=== PATIENT | male | born 1960 | race African-American/Black ===

== ENCOUNTER 2021-10-18 13:00 | Inpatient (IN) | payer MEDICAID, OTHER ==
[~2021-10-18] VITALS: Ht 185.4 cm; Wt 84.8 kg
[2021-10-18 11:00] VITALS: BP 168/102
[2021-10-18] MEDS ORDERED: HYDROCODONE/ACETAMINOPHEN 5/325MG TABLET PO STA (14:51)
[2021-10-18] MEDS ORDERED: PIPERACILLIN/TAZOBACTAM 3.375GM/50ML PREMIX IV STA (14:51)
[2021-10-18] MEDS ORDERED: PIPERACILLIN/TAZOBACTAM 3.375GM/50ML PREMIX IV NR (15:00)
[2021-10-18] MEDS ORDERED: SODIUM CHLORIDE 0.9% 1,000 ML IV ONE (15:00)
[2021-10-18] MEDS: VANCOMYCIN 1GM PMX (XELLIA) 200 ML IV STA ×2 (15:13→16:34)
[2021-10-18 15:40] LABS: BASOPHILS % 0.6 % (0.0-2.0); EOSINOPHILS % 1.4 % (0.0-5.0); HEMATOCRIT. 38.6 % (42.0-52.0); HEMOGLOBIN. 13.1 g/dL (14.0-18.0); LYMPHOCYTES % 27.7 % (20.0-50.0); MEAN CORPUSCULAR HEMOGLOBIN 35.3 pg (28.0-32.0); MEAN CORPUSCULAR VOLUME 103.7 fL (80.0-94.0); MEAN PLATELET VOLUME 8.3 fl (7.4-10.4); MONOCYTES % 7.6 % (2.0-8.0); NEUTROPHILS % 62.7 % (40.0-76.0); PLATELET 223 x1000/uL (130-400); RED BLOOD CELL COUNT 3.72 mill/uL (4.7-6.1)
[2021-10-18 15:42] LABS: CHLORIDE 104 mEq/L (98-107)
[2021-10-18 15:45] LABS: INR 0.9
[2021-10-18] MEDS: HYDROCODONE/ACETAMINOPHEN 10/325MG TABLET PO PRN (23:32)
[2021-10-19] VITALS: BP 188/113
[2021-10-19] MEDS: PIPERACILLIN/TAZOBACTAM 3.375 G in DEXTROSE 5% WATER 50 ML IV SCH ×3 (00:07→12:59)
[2021-10-19] MEDS ORDERED: VANCOMYCIN 1,250 MG in DEXT 5% WATER 250 ML IV SCH (03:00)
[2021-10-19] MEDS: HYDROCODONE/ACETAMINOPHEN 10/325MG TABLET PO PRN ×2 (03:37→08:46)
[2021-10-19 04:00] VITALS: BP 147/88
[2021-10-19] MEDS: BLOOD SUGAR DIAGNOSTIC STRIP TEST SCH ×6 (06:33→17:20)
[2021-10-19] MEDS ORDERED: DEXTROSE 50% WATER 50ML SYRINGE IV PRN (07:00)
[2021-10-19] MEDS: INSULIN LISPRO 100 UNITS/ML SUBCUT SCH ×3 (07:50→17:50)
[2021-10-19 07:55] LABS: BASOPHILS % 0.3 % (0.0-2.0); EOSINOPHILS % 1.5 % (0.0-5.0); HEMATOCRIT. 36.5 % (42.0-52.0); HEMOGLOBIN. 12.3 g/dL (14.0-18.0); LYMPHOCYTES % 35.8 % (20.0-50.0); MEAN CORPUSCULAR HEMOGLOBIN 35.1 pg (28.0-32.0); MEAN CORPUSCULAR VOLUME 103.8 fL (80.0-94.0); MEAN PLATELET VOLUME 8.6 fl (7.4-10.4); MONOCYTES % 9.7 % (2.0-8.0); NEUTROPHILS % 52.7 % (40.0-76.0); PLATELET 202 x1000/uL (130-400); RED BLOOD CELL COUNT 3.52 mill/uL (4.7-6.1); RED CELL DISTRIBUTION WIDTH 12.6 % (11.6-14.6)
[2021-10-19 08:00] VITALS: BP 156/92
[2021-10-19 08:00] LABS: CHLORIDE 105 mEq/L (98-107)
[2021-10-19 08:08] LABS: HDL CHOLESTEROL 42 mg/dL (40-59); LDL CHOLESTEROL 109 mg/dL (5-100)
[2021-10-19] MEDS ORDERED: LISINOPRIL 20MG TABLET PO SCH (09:00)
[2021-10-19 12:00] VITALS: BP 157/105
[2021-10-19] MEDS ORDERED: AMOX1TAB16 MT (12:22)
[2021-10-19] MEDS ORDERED: SULF1TAB48 MT (12:22)
[2021-10-19] MEDS ORDERED: LOSA100T32 MT (12:44)
[2021-10-19 16:00] VITALS: BP 149/98
[2021-10-19 18:37] VITALS: BP 158/92
[2021-10-19] MEDS ORDERED: VANCOMYCIN 1GM PMX (XELLIA) 200 ML IV SCH (21:00)
[2021-10-19] MEDS ORDERED: ATORVASTATIN CALCIUM 40MG TABLET PO SCH (21:00)
[2021-10-20 09:07] LABS: % CD 3 POS. LYMPHOCYTES 85.1 % (57.5-86.2); % CD 4 POS. LYMPHOCYTES 21.7 % (30.8-58.5); % CD 8 POS. LYMPH 66.9 % (12.0-35.5); ABSOLUTE CD 3 1362 /uL (622-2402); ABSOLUTE CD 4 HELPER 347 /uL (359-1519); ABSOLUTE CD 8 SUPPRESSOR 1070 /uL (109-897); ABSOLUTE EOSINOPHILS 0.1 x10E3/uL (0.0-0.4); ABSOLUTE LYMPHOCYTES 1.6 x10E3/uL (0.7-3.1); ABSOLUTE MONOCYTES 0.4 x10E3/uL (0.1-0.9); ABSOLUTE NEUTROPHILS 2.6 x10E3/uL (1.4-7.0); BASOPHILS 1 % (Not Estab.); CD4/CD8 RATIO 0.32 (0.92-3.72); HEMATOCRIT 35.3 % (37.5-51.0); HEMOGLOBIN 12.2 g/dL (13.0-17.7); IMMATURE GRANULOCYTES 0 % (Not Estab.); LYMPHOCYTES 35 % (Not Estab.); MEAN CORPUSCULAR HEMOGLOBIN 34.9 pg (26.6-33.0); MEAN CORPUSCULAR HGB CONC. 34.6 g/dL (31.5-35.7); MEAN CORPUSCULAR VOLUME 101 fL (79-97); MONOCYTES 7 % (Not Estab.); NEUTROPHILS 55 % (Not Estab.); PLATELETS 210 x10E3/uL (150-450); RED CELL DISTRIBUTION WIDTH 12.9 % (11.6-15.4); WBC 4.8 x10E3/uL (3.4-10.8)
== END 2021-10-19 19:15 | disposition home or self-care (01) | DRG 383 ==
LOC: ER 13:00 → 6EST 22:48
PROVIDERS: ADMIT Internal Medicine; ATTEND Internal Medicine
DX: L03.011 Cellulitis of right finger (principal); E11.9 Type 2 diabetes mellitus without complications; Z20.822 Contact with and (suspected) exposure to COVID-19; I10 Essential (primary) hypertension; Z21 Asymptomatic human immunodeficiency virus [HIV] infection status
CPT/HCPCS: 36415; 73130; 80048; 80053; 80061; 82962; 83036; 85025; 86359; 86360; 86850; 86900; 87070; 87077; 87186; 87426; 93005; 99285; C9803; J2543; J3370; J7060